=== PATIENT | male | born 1955 | race Caucasian/White ===

== ENCOUNTER 2024-03-24 16:58 | Emergency (ER) | payer OTHER, SELFPAY ==
[2024-03-24 17:32] VITALS: BP 139/75; PULSE 68; RESP 19; TEMP 36.6; O2SAT 98; BMI 25.1
--- NOTE | 2024-03-24 17:33 | ED.URI ---
HPI - URI/Sore Throat General Chief Complaint: Urogenital-Male Stated Complaint: ?UTI Time Seen by Provider: 03/24/24 22:06 Source: patient Mode of arrival: ambulatory Limitations: no limitations History of Present Illness ED Provider: Dr. Abarca HPI Narrative: Patient states that when he urinates he has pain in his penis and noticed blood. In addition he noticed that he had a sore throat for the past few days. He denies fever, or discharge from his penis Related Data Previous Rx's ?Medication ?Instructions ?Recorded cephalexin 500 mg capsule 500 mg PO Q6H 7 days #28 caps 03/24/24 Allergies Allergy/AdvReac Type Severity Reaction Status Date / Time No Known Allergies Allergy Verified 03/24/24 17:35 Review of Systems Review of Systems: Yes all other systems are reviewed and are negative Neurologic: Denies Sensory deficit (Neuro) [facility] [place] Social History Social History Do you have a plan to hurt others: No Plan Physical Exam Vital Signs: Vital Signs: Last Vital Signs Temp 97.6 F 03/24/24 21:13 Pulse 61 03/24/24 21:13 Resp 16 03/24/24 21:13 BP 113/69 03/24/24 21:13 Pulse Ox 98 03/24/24 21:13 O2 Del Method Room Air 03/24/24 21:13 BMI result Body Mass Index 25.1 Const: General: healthy appearing Nutritional Appearance: average body habitus Orientation/consciousness: oriented to person and patient oriented x3 Limitations: no limitations HEENT: Head: Yes normal to inspection Ears: external ears normal General nose exam: Normal external nose present Mouth: Normal oral and palatal mucosa present and oropharynx normal Throat: Yes posterior oropharynx normal Eyes: General: appearance normal, both eyes and all related structures Neck: Other: supple Neck: Yes normal visual inspection Chest: Chest palpation & inspection: normal inspection of the chest Resp: Auscultation: clear to auscultation bilaterally Cardio: Jugular venous distension: no JVD Rate: regular rate Rhythm: regular rhythm Heart sounds: S1 normal heart sound present and S2 normal heart sound present GI: Inspection: Yes normal to inspection Palpation (GI): Soft to palpation, nontender and No hepatosplenomegaly present Auscultation: normal bowel sounds : Other: Hypospadius, no discharge, normal testicles General: Yes no CVA tenderness Back/Spine/Pelvis: Back: no CVA tenderness Skin: General skin exam: no rashes or lesions noted Neuro: General: oriented to person and patient oriented x3 Cranial nerves: Yes CN's II-XII intact bilaterally Motor exam (neuro): 5/5 motor strength present throughout Sensory Exam: No Sensory deficit (Neuro) Extrem: General: Yes normal to inspection Psych: Appearance: grossly normal Course Course Course Narrative: This is a Rapid Medical Exam performed in triage by Bridget Merida PA-C. Full HPI, ROS and PE to be performed by primary ED provider. 68 yo M presenting to the ED c/o ?UTI w/dysuria & hematuria x this morning and sore throat x1 week. denies concern for sexually transmitted infection. PE: Mild posterior oropharynx erythema. Uvula midline, no tonsillar exudates Plan: UA, STI testing, Rapid strep Reevaluation(s) Reevaluation #1: patient with UTI, no evidence of strep, will start him on keflex for his UTI Time: 22:19 Medical Decision Making Differential Diagnosis Differential Diagnoses: The differential diagnosis associated with the presentation includes (UTI, renal colic, STD, post streptoccal glomerularnephritis, strep throat) Lab Data Labs: Lab Results 03/24/24 03/24/24 Range/Units 17:45 19:16 Urine Color Yellow Urine Appearance Clear Urine pH 5.5 (5.0-9.0) Ur Specific [place] 1.020 (1.005-1.025) Urine Protein Negative (Neg-Trace) mg/dL Urine Glucose (UA) Negative (Negative) mg/dL Urine Ketones Negative (Negative) mg/dL Urine Blood Large (3+) H (Negative) Urine Nitrite Negative (Negative) Ur Leukocyte Esterase Trace H (Negative) Urine RBC >20 H (0-2) /HPF Urine WBC 6-10 H (0-5) /HPF Ur Squamous Epith Cells 0-2 (0-2) /HPF Urine Bacteria Trace (None Seen) Hyaline Casts 0-2 (0-2) /LPF S. pyogenes GrpA LAMAR Negative (Negative) Independent Historian Clinical information obtained from an independent historian. History obtained from or confirmed by: Spouse Discharge Plan Discharge Clinical Impression: Urinary tract infection, Sore throat Patient Disposition: Home, Self-Care Instructions: Urinary Tract Infection in Men (ED), Pharyngitis (ED) Prescriptions: New cephalexin 500 mg capsule 500 mg PO Q6H 7 Days Qty: 28 0RF Referrals: Physician,Unknown J [Primary Care Provider] - 1 week Print Language: Macedonian
[2024-03-24 17:59] LABS: IDNOW Serial# 58CA691E; Strep A Nucleic Acid Negative (Negative)
--- NOTE | 2024-03-24 19:20 | MHC.EDTECH ---
Patient brought into triage area,was unable to give the CTNG,but did have a clean catch urine sample,urine sent to lab, will re attempt.
[2024-03-24 19:24] LABS: Appearance Urine Clear; Color Urine Yellow; Glucose Urine UA Negative (Negative); Leukocyte Esterase Urine Trace (Negative); Nitrite Urine Negative (Negative); PH 5.5 (5.0-9.0); UMIC TRIGGER UACC YES; Urine Blood Large (3+) (Negative); Urine Ketones Negative (Negative); Urine Protein Negative (Neg-Trace)
--- NOTE | 2024-03-24 19:25 | MHC.EDTECH ---
Patient brought CTNG to triage,collected and sent to lab
[2024-03-24 19:29] LABS: Bacteria Urine Trace (None Seen); Hyaline Casts Urine 0-2 /LPF (0-2); RBC Urine >20 /HPF (0-2); Squamous Epithelial Cell Urine 0-2 /HPF (0-2); UACC Culture Trigger YES
[2024-03-24 21:13] VITALS: BP 113/69; PULSE 61; RESP 16; TEMP 36.4; O2SAT 98
[2024-03-24 22:29] VITALS: BP 119/76; PULSE 63; RESP 16; TEMP 36.8; O2SAT 97
[2024-03-24] MEDS: cephALEXin 500 MG CAPSULE PO (22:52)
[2024-03-24 23:47] VITALS: BP 119/76; PULSE 63; RESP 16; TEMP 36.8; O2SAT 97
[2024-03-25 05:51] LABS: CT PCR NOT DETECTED (Not Detect.); NG PCR NOT DETECTED (Not Detect.)
== END 2024-03-24 23:00 | disposition home or self-care (01) ==
PROVIDERS: Physician Assistant; Emergency Provider Emergency Medicine
DX: N39.0 Urinary tract infection, site not specified (principal); N48.89 Other specified disorders of penis; J02.9 Acute pharyngitis, unspecified
CPT/HCPCS: 81001; 87086; 87491; 87591; 87651; 99283; 99284